=== PATIENT | male | born 1945 | race Caucasian/White ===

== ENCOUNTER 2025-05-22 11:01 | Outpatient (CLI) | payer MEDICARE, SELFPAY ==
--- NOTE | ~2025-05-22 | XR_ITS ---
XR ankle RT 2V, XR tibia fibula RT 2V 05/22/2025 11:25 Indication: Right leg pain Procedure: 2 views right ankle and 2 views right tibia/fibula Comparison: No prior studies for comparison. Findings: No fracture, subluxation or dislocation. 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 No significant soft tissue abnormality. No foreign bodies. Impression: 1: No acute bone or joint abnormality. 2: Intraosseous lipoma the calcaneus. Reviewed, dictated and finalized at location O. Impression: 1: No acute bone or joint abnormality. 2: Intraosseous lipoma the calcaneus. Impression: 1: No acute bone or joint abnormality. 2: Intraosseous lipoma the calcaneus.
== END 2025-05-22 11:02 | disposition home or self-care (01) ==
PROVIDERS: PCP Nurse Practitioner Family; Visit Provider Nurse Practitioner Family
DX: M25.571 Pain in right ankle and joints of right foot (principal); M79.661 Pain in right lower leg
CPT/HCPCS: 73590; 73600